=== PATIENT | male | born 1970 | race Caucasian/White ===

== ENCOUNTER → 2021-02-24 | Outpatient (CLI) | payer OTHER ==
--- NOTE | 2021-02-24 12:18 | RAD ---
Examination: Ultrasound kidneys HISTORY: History of urinary urgency COMPARISON: None available. FINDINGS: The right kidney measures 11.9 x 6.1 x 6.1 cm. There is a 1.2 cm cyst identified in the right kidney. The left kidney measures 12.5 x 5.9 x 6.2 cm. There is anechoic structure measuring 1.2 cm in the le ft kidney could be a cyst or cystic lesion. Prevoid urinary bladder volume is 215 cc. Postvoid urinary bladder volume is 16 cc. IMPRESSION: 1. An anechoic cystic structure measuring 1.2 cm left kidney could be a cyst or cystic lesion. Recomm end CT urogram for further evaluation. 2. 1.2 cm cyst right kidney. Electronically signed by: Mj Parrish MD (02/24/2021 12:15 PM) [id number]
== END ==
LOC: US 10:51
PROVIDERS: ATTEND Specialist
DX: N28.1 Cyst of kidney, acquired (principal)
CPT/HCPCS: 76770